=== PATIENT | female | born 1945 | race Caucasian/White ===

== ENCOUNTER → 2016-05-27 | Outpatient (CLI) | payer OTHER | LOC: BMCIMAGING 10:02 | DX: Z12.31 Encounter for screening mammogram for malignant neoplasm of breast (principal) | CPT/HCPCS: G0202 ==

== ENCOUNTER → 2017-09-09 | Outpatient (CLI) | payer OTHER | LOC: BMCIMAGING 12:18 | DX: Z12.31 Encounter for screening mammogram for malignant neoplasm of breast (principal) ==